=== PATIENT | male | born 1940 | race Caucasian/White ===

== ENCOUNTER 2017-05-09 08:39 | Inpatient (IN) ==
[2017-05-09 10:49] LABS: Basophils # 0.1 10*3/uL (0.0-0.2); Basophils % 0.7 % (0.0-0.8); Eosinophils # 0.2 10*3/uL (0.0-0.87); Eosinophils % 2.8 % (0.00-10.9); Hematocrit 45.5 VOL% (42.0-52.0); Hemoglobin 15.2 GM/DL (14.0-18.0); Immature Granulocytes % 0.7 %; Immature Granulocytes Absolute 0.05 #; Lymphocytes # 1.2 10*3/uL (1.4-4.0); Lymphocytes % 18.1 % (21.2-54.2); Mean Corpuscular HGB Conc 33.4 GM/DL (32-36); Mean Corpuscular Hemoglobin 29 PG (27-34); Mean Corpuscular Volume 87.7 FL (87-102); Mean Platelet Volume 10.8 FL (9.6-12.0); Monocytes # 0.5 10*3/uL (0.11-0.8); Monocytes % 7.9 % (1.7-12.7); Neutrophils # 4.7 10*3/uL (1.4-7.4); Neutrophils % 69.8 % (38.7-73.9); Platelet Count 140 T/CUMM (130-400); Red Blood Count 5.19 MC/CUMM (3.8-5.5); Red Cell Distribution Width 12.2 % (9.3-17.3); White Blood Count 6.7 T/CUMM (4-12)
[2017-05-09 10:53] LABS: INR 3.2
[2017-05-09 10:59] LABS: PT Patient Result 32.1 SECS
[2017-05-09 11:45] LABS: CKMB % 4.2 %; Troponin I Only 0.024 NG/ML (0.00-0.045)
[2017-05-09 11:46] LABS: Apearance,Urine CLEAR (Clear); Bilirubin,Urine Negative (Negative); Blood, Urine Negative (Negative); Glucose,Urine (UA) Negative (Negative); Ketones,Urine Negative (Negative); Nitrite,Urine Negative (Negative); Protein,Urine Negative; RBC,Urine <1 /HPF (0-4); Urine Color Yellow (Yellow); Urine Specific Gravity 1.013 (1.001-1.035); Urine Urobilinogen < 2.0 EU/DL (0.2-1.0); WBC,Urine <1 /HPF (0-6)
[2017-05-09 12:02] LABS: Albumin 3.6 G/DL (3.4-5.0); Calcium 9.1 MG/DL (8.5-10.1); Osmolality,Calculated 281.5 MOS/KG (273-304); Potassium 5.1 MMOL/L (3.5-5.1); Total Protein 7.5 G/DL (6.4-8.3)
[2017-05-09 14:12] LABS: Barbiturates Screen,Urine Negative (Negative); Benzodiazepines Screen,Urine Negative (Negative); Cannabinoid Screen,Urine Negative (Negative); Opiate Screen,Urine Negative (Negative); Phencyclidine Screen,Urine Negative (Negative)
[2017-05-09] MEDS ORDERED: diphenhydrAMINE CAP 25 MG CAPSULE PO PRN (14:23)
[2017-05-09] MEDS ORDERED: ONDANSETRON 4 MG/2 ML VIAL IV PRN (14:23)
[2017-05-09] MEDS ORDERED: DOCUSATE SODIUM 100 MG CAPSULE PO PRN (14:23)
[2017-05-09] MEDS ORDERED: ACETAMINOPHEN 325 MG TABLET PO PRN ×2 (14:23)
[2017-05-09] MEDS ORDERED: LABETALOL 20 MG/4 ML SYRINGE IV PRN (14:23)
[2017-05-09] MEDS ORDERED: MORPHINE 2 MG/1 ML SYRINGE IV PRN (14:23)
[2017-05-09] MEDS ORDERED: DEXTROSE 50% 25 GM/50 ML VIAL IV PRN (14:23)
[2017-05-09] MEDS ORDERED: GLUCAGON 1 MG VIAL IM PRN (14:23)
[2017-05-09] MEDS ORDERED: ENOXAPARIN 40 MG/0.4 ML SYRINGE SUBCUT SCH (14:30)
[2017-05-09] MEDS ORDERED: METHYLCELLULOSE 500 MG TABLET PO SCH (15:00)
[2017-05-09] MEDS: GLIMEPIRIDE 2 MG TABLET PO SCH ×2 (15:31→21:36)
[2017-05-09 15:44] LABS: Risk Ratio 4.29; VLDL CHOLESTEROL 23.4 MG/DL
[2017-05-09] MEDS: INSULIN NPH 100 UNIT/ML SUBCUT SCH (16:26)
[2017-05-09] MEDS: DOCUSATE SODIUM 100 MG CAPSULE PO SCH (16:41)
[2017-05-09] MEDS: DONEPEZIL 10 MG TABLET PO SCH (16:41)
[2017-05-09] MEDS: PANTOPRAZOLE 40 MG TABLET PO SCH (16:41)
[2017-05-09] MEDS: MAGNESIUM CHLORIDE 64 MG TABLET PO SCH (16:41)
[2017-05-09] MEDS: CITALOPRAM 20 MG TABLET PO SCH (16:41)
[2017-05-09] MEDS: ASPIRIN EC 81 MG TABLET PO SCH (16:41)
[2017-05-09] MEDS: INSULIN LISPRO 100 UNIT/ML SUBCUT SCH (16:42)
[2017-05-09] MEDS: SODIUM CHLORIDE 0.9% 1,000 ML IV SCH (16:48)
[2017-05-09] MEDS ORDERED: WARFARIN 5 MG TABLET PO SCH (18:00)
[2017-05-09] MEDS ORDERED: INSULIN GLARGINE 100 UNIT/ML SUBCUT SCH (21:00)
[2017-05-09] MEDS ORDERED: PRAVASTATIN 40 MG TABLET PO SCH (21:00)
[2017-05-10] MEDS: SODIUM CHLORIDE 0.9% 1,000 ML IV SCH ×2 (01:00→09:27)
[2017-05-10 05:10] LABS: Basophils % 0.5 % (0.0-0.8); Eosinophils # 0.2 10*3/uL (0.0-0.87); Eosinophils % 3.3 % (0.00-10.9); Hematocrit 40.7 VOL% (42.0-52.0); Hemoglobin 14.1 GM/DL (14.0-18.0); Immature Granulocytes Absolute 0.06 #; Lymphocytes # 1.7 10*3/uL (1.4-4.0); Lymphocytes % 28.5 % (21.2-54.2); Mean Corpuscular HGB Conc 34.6 GM/DL (32-36); Mean Corpuscular Hemoglobin 30 PG (27-34); Mean Corpuscular Volume 85.9 FL (87-102); Mean Platelet Volume 11.1 FL (9.6-12.0); Monocytes # 0.6 10*3/uL (0.11-0.8); Monocytes % 9.2 % (1.7-12.7); Neutrophils # 3.5 10*3/uL (1.4-7.4); Neutrophils % 57.5 % (38.7-73.9); Platelet Count 129 T/CUMM (130-400); Red Blood Count 4.74 MC/CUMM (3.8-5.5); Red Cell Distribution Width 12.2 % (9.3-17.3); White Blood Count 6.1 T/CUMM (4-12)
[2017-05-10 05:46] LABS: Calcium 7.8 MG/DL (8.5-10.1); Osmolality,Calculated 283.3 MOS/KG (273-304); Potassium 3.8 MMOL/L (3.5-5.1); Thyroid Stimulating Hormone 0.407 uIU/ml (0.358-3.74)
[2017-05-10] MEDS ORDERED: LEVOTHYROXINE 100 MCG TABLET PO SCH (07:00)
[2017-05-10] MEDS: INSULIN LISPRO 100 UNIT/ML SUBCUT SCH (07:24)
[2017-05-10] MEDS: MAGNESIUM CHLORIDE 64 MG TABLET PO SCH (09:21)
[2017-05-10] MEDS: GLIMEPIRIDE 2 MG TABLET PO SCH (09:21)
[2017-05-10] MEDS: INSULIN NPH 100 UNIT/ML SUBCUT SCH (09:22)
[2017-05-10] MEDS: DONEPEZIL 10 MG TABLET PO SCH (09:22)
[2017-05-10] MEDS: ASPIRIN EC 81 MG TABLET PO SCH (09:22)
[2017-05-10] MEDS: DOCUSATE SODIUM 100 MG CAPSULE PO SCH (09:22)
[2017-05-10] MEDS: PANTOPRAZOLE 40 MG TABLET PO SCH (09:22)
[2017-05-10] MEDS: CITALOPRAM 20 MG TABLET PO SCH (09:26)
[2017-05-10 16:26] VITALS: BP 132/70
[2017-05-11] MEDS ORDERED: MEMANTINE 5 MG TABLET PO SCH (09:00)
[2017-05-12] MEDS ORDERED: WARFARIN 2.5 MG TABLET PO SCH (18:00)
== END 2017-05-10 16:13 | disposition home or self-care (01) | DRG 93 ==
LOC: N.ED 08:39 → N.EDINP 13:37 → N.2E 14:25
PROVIDERS: ADMIT Internal Medicine; ATTEND Internal Medicine